=== PATIENT | male | born 1960 | race Two or more races ===

== ENCOUNTER 2024-09-09 09:00 | Inpatient (IN) | payer MEDICAID ==
[~2024-09-09] VITALS: Ht 182.9 cm; Wt 94.0 kg
[2024-09-09] MEDS: KETOROLAC TROMETH 60MG/2ML VIAL IM ONE (09:35)
--- NOTE | 2024-09-09 10:16 | ED.PDOC ---
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 Patient reports that he has been experiencing left sided flank pain with associated nausea, vomiting, and abdominal pain for the past 6 days. Patient relays that he was recently treated for a UTI about a month ago. Patient states he has recently stopped his BP and PTSD medication a week ago. Patient denies any diarrhea, fever, chills, dysuria, or hematuria. Chief Complaint: Back Pain Time Seen by MD: 10:13 Reviewed notes: Nurses Notes, Medications, Allergies Allergies: Coded Allergies: Gabapentin (Verified Allergy, Unknown, 09/09/24) Information Source: Patient Mode of Arrival: Ambulatory Severity: Moderate Timing: Days Duration: Since onset Prehospital treatment: None Onset: Spontaneous Symptoms: None History of: UTI Location: Abdomen, (L)Flank Penile discharge: None Modifying factors: None associated signs and symptoms: Abdominal Pain, Nausea, Vomiting, Flank Pain Past Medical History PAST MEDICAL HISTORY: HTN Past Medical History (Other): PTSD Surgical History: Denies all surgeries Family History Family History: Reviewed,noncontributory to illness Social History Smoker: Non-Smoker Alcohol: Denies ETOH Use Drugs: Denies Drug Use Lives In: Home Constitutional: denies: chills, diaphoresis, fatigue, fever, malaise, sweats, weakness, others EENTM: denies: blurred vision, double vision, ear bleeding, ear discharge, ear drainage, ear pain, ear ringing, eye pain, eye redness, hearing loss, mouth pain, mouth swelling, nasal discharge, nose bleeding, nose congestion, nose pain, photophobia, tearing, throat pain, throat swelling, voice changes, others Respiratory: denies: cough, hemoptysis, orthopnea, SOB at rest, shortness of breath, SOB with excertion, stridor, wheezing, others Cardiovascular: denies: chest pain, dizzy spells, diaphoresis, Dyspnea on exertion, edema, irregular heart beat, left arm pain, lightheadedness, palpitations, PND, syncope, others Gastrointestinal: reports: abdominal pain, nausea, vomiting; denies: abdomen distended, blood streaked bowels, constipated, diarrhea, dysphagia, difficulty swallowing, hematemesis, melena, poor appetite, poor fluid intake, rectal bleeding, rectal pain, others Genitourinary: reports: flank pain; denies: burning, dysuria, frequency, hematuria, incontinence, penile discharge, penile sore, pain, testicle pain, testicle swelling, urgency, others Neurological: denies: dizziness, fainting, headache, left sided numbness, left sided weakness, numbness, paresthesia, pre-existing deficit, right sided numbness, right sided weakness, seizure, speech problems, tingling, tremors, weakness, others Musculoskeletal: denies: back pain, gout, joint pain, joint swelling, muscle pain, muscle stiffness, neck pain, others Integumetry: denies: bruises, change in color, change in hair/nails, dryness, laceration, lesions, lumps, rash, wounds, others Allergic/Immunocompromised: denies: Difficulty Healing, Frequent Infections, Hives, Itching, others Hematologic/Lymphatic: denies: anemia, blood clots, easy bleeding, easy bruising, swollen glands, others Endocrine: denies: excessive hunger, excessive sweating, excessive thirst, excessive urination, flushing, intolerance to cold, intolerance to heat, unexplained weight gain, unexplained weight loss, others Psychiatric: denies: anxiety, bipolar disorder, depression, hopeless, panic disorder, schizophrenia, sleepless, suicidal, others All Other Systems: Reviewed and Negative Physical Exam General Appearance: Moderate Distress, Normal HEENT: Normal ENT Inspection, PERRL/EOMI Neck: Full Range of Motion, Non-Tender, Normal, Normal Inspection Respiratory: Chest Non-Tender, Lungs Clear, No Accessory Muscle Use, No Respiratory Distress, Normal Breath Sounds Cardiovascular: No Edema, No JVD, No Murmur, No Gallop, Normal Peripheral Pulses, Regular Rate/Rhythm Breast Exam: Deferred Gastrointestinal: Diffuse, No Organomegaly, No Pulsatile Mass, Normal Bowel Sounds, Soft Genitalia: Deferred Pelvic: Deferred Rectal: Deferred Extremities: No calf tenderness, Normal capillary refill, Normal inspection, Normal range of motion, Non-tender, No pedal edema Musculoskeletal : Apperance: Normal Neurologic: Alert, photographic aide II-XII nml as Tested, No Motor Deficits, Normal Affect, Normal Mood, No Sensory Deficits Cerebellar Function: Normal Reflexes: Normal Skin: Dry, Normal Color, Warm Peripheral Pulses: 3+ Radial (R), 3+ Radial (L) Lymphatic: No Adenopathy Was a procedure done? Was a procedure done?: No Differential Diagnosis Kidney stone (Female): Musculoskeletal pain, Urinary obstruction, Urolithiasis X-Ray, Labs, Meds, VS Vital Signs Date Time Temp Pulse Resp B/P (MAP) Pulse Ox O2 Delivery O2 Flow Rate FiO2 09/09/24 13:30 68 10 153/114 (127) 99 09/09/24 13:30 68 10 99 Room Air* 0 21 09/09/24 10:19 63 19 99 Room Air 09/09/24 10:19 97.7 63 19 161/96 (117) 99 97.7 09/09/24 09:00 98.6 62 16 186/98 (127) 62 Lab Test 09/09/24 10:25 09/09/24 10:24 Range/Units White Blood Count 10.4 4.4-10.8 10^3/uL Red Blood Count 4.80 4.5-5.90 10^6/uL Hemoglobin 14.9 13.5-17.5 g/dL Hematocrit 43.8 41.0-53.0 % Mean Corpuscular Volume 91.4 80.0-100.0 fL Mean Corpuscular Hemoglobin 31.0 28.0-32.0 pg Mean Corpuscular Hemoglobin Concent 34.0 32.0-36.0 g/dL Red Cell Distribution Width 14.0 11.8-14.3 % Platelet Count 423 140-450 10^3/uL Mean Platelet Volume 8.1 6.9-10.8 fL Neutrophils (%) (Auto) 80.1 H 37.0-80.0 % Lymphocytes (%) (Auto) 14.0 10.0-50.0 % Monocytes (%) (Auto) 4.6 0.0-12.0 % Eosinophils (%) (Auto) 0.5 0.0-7.0 % Basophils (%) (Auto) 0.8 0.0-2.0 % Neutrophils # (Auto) 8.3 1.6-8.6 10 ^3/uL Lymphocytes # (Auto) 1.4 0.4-5.4 10 ^3/uL Monocytes # (Auto) 0.5 0-1.3 10 ^3/uL Eosinophils # (Auto) 0 0-0.8 10 ^3/uL Basophils # (Auto) 0.1 0-0.2 10 ^3/uL Nucleated Red Blood Cells 0.1 % Sodium Level 137 136-145 mmol/L Potassium Level 3.8 3.5-5.1 mmol/L Chloride Level 105 98-107 mmol/L Carbon Dioxide Level 22 20-31 mmol/L Anion Gap 10 5-15 Blood Urea Nitrogen 11 9-23 mg/dL Creatinine 0.76 0.700-1.30 mg/dL Glomerular Filtration Rate Calc 100 >90 mL/min BUN/Creatinine Ratio 14.5 10.0-20.0 Serum Glucose 126 H 74-106 mg/dL Calcium Level 10.2 8.7-10.4 mg/dL Lipase 31 12-53 U/L Urine Color Yellow Yellow Urine Clarity Clear Clear Urine pH 7.5 5.0-9.0 Urine Specific [place] 1.026 1.001-1.035 Urine Protein Negative Negative Urine Ketones 1+ H Negative Urine Blood Negative Negative /uL Urine Nitrite Negative Negative Urine Bilirubin Negative Negative Urine Urobilinogen 2 H Negative mg/dL Urine Leukocyte Esterase Negative Negative /uL Urine RBC <1 0 - 3 /hpf Urine WBC 5 0 - 3 /hpf Urine Squamous Epithelial Cells None seen <5 /hpf Urine Bacteria None seen None Seen /hpf Urine Hyaline Casts Few 0 - 2 /lpf Urine Glucose Normal Normal mg/dL Current Medications Medications (Trade) Dose Ordered Sig/Milena Route Start Time Stop Time Status Last Admin Ketorolac Tromethamine (Toradol Injection) 60 mg ONCE ONCE IM 09/09/24 09:45 09/09/24 09:46 DC 09/09/24 09:35 Sodium Chloride 1,000 ml @ 1,000 mls/hr Q1H ONCE IV 09/09/24 10:15 09/09/24 11:14 DC 09/09/24 10:17 Pantoprazole Sodium 50 ml @ 10 mls/hr Q5H ONCE IV 09/09/24 11:45 09/09/24 16:44 09/09/24 13:35 Octreotide Acetate 500 mcg/ Sodium Chloride 100 ml @ 10 mls/hr Q10H IV 09/09/24 11:45 09/09/24 13:48 Patient alert. Complaining of abdominal pain radiating to the back. Vitals stable. Answering all questions. Started to vomit bright red blood. Establish intravenous access. Was given fluids. Was given Protonix. Was given octreotide. WBC within normal limits. Hemoglobin within normal limits. Stopped taking his medication. Blood pressure elevated. Was given hydralazine. Explained to the patient. Continue cardiac monitoring. CT scan of the abdomen reviewed does not show any acute process. Time of 1ST Reevaluation: 11:13 Reevaluation 1ST: Unchanged Patient Education/Counseling: Diagnosis, Treatment Family Education/Counseling: No Family Present Departure 1 Departure Time of Disposition: 14:18 Impression: Primary Impression: GI bleed Qualified Codes: K92.2 - Gastrointestinal hemorrhage, unspecified Additional Impression: Gallstones Disposition: ADMITTED INPATIENT Admit to: Med Surg Condition: Guarded Critical Care Note Critical Care Time?: Yes (45 min-critical care time only) Stability Stability form required: No Heart Score Heart Score: Heart Score Response (Comments) Value History N/A 0 EKG N/A 0 Age N/A 0 Risk Factors N/A 0 Troponin N/A 0 Total 0 I personally scribed for DEBBIE MCPHERSON MD ([email or web address]) on 09/09/24 at 10:16. Electronically submitted by Serafin Martinez ([email or web address]). DEBBIE MCPHERSON MD Sep 09, 2024 10:16
[2024-09-09] MEDS: SODIUM CHLORIDE 0.9% 1,000 ML IV ONE (10:17)
[2024-09-09 10:55] LABS: Chloride 105 mmol/L (98-107); Potassium 3.8 mmol/L (3.5-5.1); Sodium 137 mmol/L (136-145)
[2024-09-09 10:56] LABS: Anion Gap 10 (5-15); Basophils # (auto) 0.1 10 ^3/uL (0-0.2); Basophils % (auto) 0.8 % (0.0-2.0); Calcium 10.2 mg/dL (8.7-10.4); Carbon Dioxide 22 mmol/L (20-31); Eosinophils # (auto) 0 10 ^3/uL (0-0.8); Eosinophils % (auto) 0.5 % (0.0-7.0); Hematocrit 43.8 % (41.0-53.0); Hemoglobin 14.9 g/dL (13.5-17.5); Lymphocytes # (auto) 1.4 10 ^3/uL (0.4-5.4); Mean Corpuscular Volume 91.4 fL (80.0-100.0); Monocytes # (auto) 0.5 10 ^3/uL (0-1.3); Monocytes % (auto) 4.6 % (0.0-12.0); Neutrophils # (auto) 8.3 10 ^3/uL (1.6-8.6); Neutrophils % (auto) 80.1 % (37.0-80.0); Nucleated Red Blood Cells % 0.1 %; Platelet Count (auto) 423 10^3/uL (140-450); White Blood Cell 10.4 10^3/uL (4.4-10.8)
[2024-09-09 11:01] LABS: BUN/Creatinine Ratio 14.5 (10.0-20.0); Blood Urea Nitrogen 11 mg/dL (9-23)
[2024-09-09 11:03] LABS: Urine Bacteria None Seen /hpf (None Seen)
[2024-09-09 11:05] LABS: Glucose 126 mg/dL (74-106)
[2024-09-09 11:23] LABS: Urine Blood Negative /uL (Negative); Urine Clarity Clear (Clear); Urine Color Yellow (Yellow); Urine Hyaline Cast FEW /lpf (0 - 2); Urine Protein, UAD Negative (Negative); Urine Specific Gravity 1.026 (1.001-1.035); Urine Urobilinogen 2 mg/dL (Negative); Urine WBC 5 /hpf (0 - 3); Urine pH 7.5 (5.0-9.0)
[2024-09-09 11:43] LABS: Lipase 31 U/L (12-53)
--- NOTE | 2024-09-09 12:53 | DVH ---
Procedure: CT CT AB PEL WITH IV CON ONLY 09/09/2024 12:03 PM Indication: gibleed Comparison Study: None available at time of dictation. Technique: Axial images were obtained and reformatted in coronal and sagittal planes. All CT scans at this medical facility are performed using dose modulation techniques as appropriate t o a performed exam including the following: Automated exposure control was utilized; adjustment of th e MA and/or KV according to patient size; and use of iterative reconstruction technique. CT Dose: CTDI volume is 7.55 mGy. Dose-length product is 345.38 mGy*cm FINDINGS: Lower Chest: Mild centrilobular and paraseptal emphysematous changes noted. A 5 mm juxtapleural nodul e seen in the lateral segment of right middle lobe. Mild left basilar subsegmental atelectasis noted . Hepatobiliary: Cholelithiasis with no evidence for cholecystitis. Spleen: Unremarkable. Pancreas: Unremarkable. Adrenal Glands: Unremarkable. tract: The kidneys are normal in size bilaterally without hydronephrosis or nephrolithiasis. The urinary bladder is unremarkable. GI tract: A small sliding hiatal hernia noted. No evidence of small bowel obstruction. Scattered col onic diverticula are noted without evidence of diverticulitis. The appendix is normal. Lymphatics: No mesenteric, retroperitoneal or periportal lymphadenopathy. Vasculature: The abdominal aorta is normal in caliber. Diffuse calcified plaque formation is noted. Pelvic Organs: Prostate is mildly enlarged. Bones/soft tissues: No acute osseous abnormality. Postoperative changes of right acetabulum and left proximal hip are noted chronic appearing moderate compression deformities of L2 and L4 with up to 50 % loss of height centrally. Multilevel degenerative disc disease and posterior facet arthropathy of the lumbar spine noted. Other: None. IMPRESSION: 1. No CT evidence for acute intra-abdominal or intrapelvic process. 2. Scattered colonic diverticula without diverticulitis. 3. Mild fecal retention. 4. Small sliding hiatal hernia. 5. Cholelithiasis without evidence of cholecystitis.
[2024-09-09 13:30] VITALS: PULSE 68; RESP 10; O2SAT 99
[2024-09-09] MEDS: PANTOPRAZOLE 40mg/50ML NS AE 50 ML IV ONE (13:35)
[2024-09-09] MEDS: IOHEXOL 300 MG/ML 100ML BOTTLE IJ ONE (13:43)
[2024-09-09] MEDS: OCTREOTIDE ACETATE 500 MCG in SODIUM CHL 0.9% 99 ML IV SCH (13:48)
[2024-09-09] MEDS ORDERED: AMLO1TAB23 PO (14:27)
[2024-09-09] MEDS ORDERED: ROSU10TA64 PO (14:27)
[2024-09-09] MEDS ORDERED: ENAL1TAB48 PO (14:27)
[2024-09-09] MEDS ORDERED: FLUO-470 PO (14:27)
[2024-09-09] MEDS ORDERED: BUPR150T18 PO (14:27)
[2024-09-09] MEDS ORDERED: FLUO40CA PO (14:27)
[2024-09-09] MEDS ORDERED: OXCA600T3 PO (14:27)
[2024-09-09] MEDS ORDERED: ONDANSETRON HCL 4 MG/2 ML VIAL IV PRN (14:30)
[2024-09-09] MEDS ORDERED: NITROGLYCERIN 0.4 MG SL TAB SL PRN (14:30)
[2024-09-09] MEDS ORDERED: MORPHINE SULFATE INJ 2 MG/ml SYRG IV PRN (14:30)
[2024-09-09] MEDS ORDERED: DOCUSATE SOD 100 MG CAP PO PRN (14:30)
--- NOTE | 2024-09-09 14:34 | DVHHP2 ---
History of Present Illness Reason for Visit: Back Pain History of Present Illness Vladimir Martinez is a 64-year-old male with past medical history of hypertension, hyperlipidemia, chronic pain, and PTSD, who came into the hospital for back/flank pain. Patient states that he began having back pain about 5 days ago. He stopped taking all his home medications thinking they were harming his kidneys. While in the ER he became nauseated and vomiting bile, then began to vomit dark red blood. Cardiovascular: HTN, hyperipidemia Psych: Other (PTSD) Musculoskeletal: Chronic low back pain Past Surgical History: Other (righ femur, right pelvis, right ankle, left forarm), Tonsillectomy Smoke: No ALCOHOL: none Drugs: Marijuana Lives: with Family Domestic Violence: Neg Review of Systems Constitutional: Yes: Malaise; No: Fever, Chills, Sweats, Weakness, Other Eyes: No: Pain, Vision change, Conjunctivae inflammation, Eyelid inflammation, Other, Redness ENT: No: Ear pain, Ear discharge, Nose pain, Nose discharge, Nose congestion, Mouth pain, Mouth swelling, Throat pain, Throat swelling, Other Respiratory: No: Cough, Dry, Shortness of breath, SOB with excertion, Wheezing, Hemoptysis, Pleuritic Pain, Sputum, Wheezing, Other Cardiovascular: No: Chest Pain, Palpitations, Orthopnea, Paroxysmal Noc. Dyspnea, Edema, Lt Headedness, Other Gastrointestinal: Nausea, Vomiting; No: Abdominal Pain, Diarrhea, Constipation, Melena, Hematochezia, Other Genitourinary: No Dysuria, No Frequency, No Incontinence, No Hematuria, No Retention, No Other Musculoskeletal: back pain; No: other, neck pain, shoulder pain, arm pain, hand pain, leg pain, foot pain Skin: No: Rash, Lesions, Jaundice, Bruising, Other Neurological: No: Weakness, Numbness, Incoordination, Change in speech, Confusion, Seizures, Other Allergies: Coded Allergies: Gabapentin (Verified Allergy, Unknown, 09/09/24) Medications Current Medications Medications Dose Ordered Sig/Milena Route Start Time Stop Time Status Last Admin Dose Admin Octreotide Acetate 500 mcg/ Sodium Chloride 100 ml @ 10 mls/hr Q10H IV 09/09/24 11:45 09/09/24 13:48 10 MLS/HR Sodium Chloride 1,000 ml @ 100 mls/hr Q10H IV 09/09/24 14:30 UNV Acetaminophen/ Hydrocodone Bitart 1 tab Q4HP PRN PO 09/09/24 14:30 UNV Ondansetron HCl 4 mg Q4HP PRN IV 09/09/24 14:30 UNV Docusate Sodium 100 mg BIDPRN PRN PO 09/09/24 14:30 UNV Acetaminophen 650 mg Q6HP PRN PO 09/09/24 14:30 UNV Morphine Sulfate 2 mg Q4HPRN PRN IV 09/09/24 14:30 UNV Nitroglycerin 0.4 mg Q5MINP PRN SL 09/09/24 14:30 UNV Morphine Sulfate 2 mg Q30M PRN IV 09/09/24 14:30 UNV Exam Vital Signs Vital Signs Date Time Temp Pulse Resp B/P (MAP) Pulse Ox O2 Delivery O2 Flow Rate FiO2 09/09/24 13:30 68 10 153/114 (127) 99 09/09/24 13:30 Room Air* 0 21 09/09/24 10:19 97.7 97.7 General Appearance: Alert, Oriented X3, Cooperative, moderate distress HEENT: Atraumatic, PERRLA Respiratory: Clear to auscultation, Normal air movement Cardiovascular: Regular rate, Normal S1, Normal S2 Abdominal: Normal bowel sounds, Soft, Other (N/V) Extremities: No clubbing, No cyanosis, No edema, Normal pulses Skin: No rashes, No breakdown, No significant lesion Neuro: Normal gait, Normal speech Psych/Mental Status: Mental status NL, Mood NL Labs/Xrays Labs Test 09/09/24 10:25 09/09/24 10:24 Range/Units White Blood Count 10.4 4.4-10.8 10^3/uL Red Blood Count 4.80 4.5-5.90 10^6/uL Hemoglobin 14.9 13.5-17.5 g/dL Hematocrit 43.8 41.0-53.0 % Mean Corpuscular Volume 91.4 80.0-100.0 fL Mean Corpuscular Hemoglobin 31.0 28.0-32.0 pg Mean Corpuscular Hemoglobin Concent 34.0 32.0-36.0 g/dL Red Cell Distribution Width 14.0 11.8-14.3 % Platelet Count 423 140-450 10^3/uL Mean Platelet Volume 8.1 6.9-10.8 fL Neutrophils (%) (Auto) 80.1 H 37.0-80.0 % Lymphocytes (%) (Auto) 14.0 10.0-50.0 % Monocytes (%) (Auto) 4.6 0.0-12.0 % Eosinophils (%) (Auto) 0.5 0.0-7.0 % Basophils (%) (Auto) 0.8 0.0-2.0 % Neutrophils # (Auto) 8.3 1.6-8.6 10 ^3/uL Lymphocytes # (Auto) 1.4 0.4-5.4 10 ^3/uL Monocytes # (Auto) 0.5 0-1.3 10 ^3/uL Eosinophils # (Auto) 0 0-0.8 10 ^3/uL Basophils # (Auto) 0.1 0-0.2 10 ^3/uL Nucleated Red Blood Cells 0.1 % Sodium Level 137 136-145 mmol/L Potassium Level 3.8 3.5-5.1 mmol/L Chloride Level 105 98-107 mmol/L Carbon Dioxide Level 22 20-31 mmol/L Anion Gap 10 5-15 Blood Urea Nitrogen 11 9-23 mg/dL Creatinine 0.76 0.700-1.30 mg/dL Glomerular Filtration Rate Calc 100 >90 mL/min BUN/Creatinine Ratio 14.5 10.0-20.0 Serum Glucose 126 H 74-106 mg/dL Calcium Level 10.2 8.7-10.4 mg/dL Lipase 31 12-53 U/L Urine Color Yellow Yellow Urine Clarity Clear Clear Urine pH 7.5 5.0-9.0 Urine Specific [place] 1.026 1.001-1.035 Urine Protein Negative Negative Urine Ketones 1+ H Negative Urine Blood Negative Negative /uL Urine Nitrite Negative Negative Urine Bilirubin Negative Negative Urine Urobilinogen 2 H Negative mg/dL Urine Leukocyte Esterase Negative Negative /uL Urine RBC <1 0 - 3 /hpf Urine WBC 5 0 - 3 /hpf Urine Squamous Epithelial Cells None seen <5 /hpf Urine Bacteria None seen None Seen /hpf Urine Hyaline Casts Few 0 - 2 /lpf Urine Glucose Normal Normal mg/dL Procedure: CT CT AB PEL WITH IV CON ONLY 09/09/2024 12:03 PM FINDINGS: Lower Chest: Mild centrilobular and paraseptal emphysematous changes noted. A 5 mm juxtapleural nodule seen in the lateral segment of right middle lobe. Mild left basilar subsegmental atelectasis noted. Hepatobiliary: Cholelithiasis with no evidence for cholecystitis. Spleen: Unremarkable. Pancreas: Unremarkable. Adrenal Glands: Unremarkable. tract: The kidneys are normal in size bilaterally without hydronephrosis or nephrolithiasis. The urinary bladder is unremarkable. GI tract: A small sliding hiatal hernia noted. No evidence of small bowel obstruction. Scattered colonic diverticula are noted without evidence of diverticulitis. The appendix is normal. Lymphatics: No mesenteric, retroperitoneal or periportal lymphadenopathy. Vasculature: The abdominal aorta is normal in caliber. Diffuse calcified plaque formation is noted. Pelvic Organs: Prostate is mildly enlarged. Bones/soft tissues: No acute osseous abnormality. Postoperative changes of right acetabulum and left proximal hip are noted chronic appearing moderate compression deformities of L2 and L4 with up to 50% loss of height centrally. Multilevel degenerative disc disease and posterior facet arthropathy of the lumbar spine noted. Other: None. IMPRESSION: 1. No CT evidence for acute intra-abdominal or intrapelvic process. 2. Scattered colonic diverticula without diverticulitis. 3. Mild fecal retention. 4. Small sliding hiatal hernia. 5. Cholelithiasis without evidence of cholecystitis. Assessment/Plan Assessment/Plan Assessment: GI bleed, Cholelithiasis, Hypertension, Hyperlipidemia, PTSD, Chronic pain, Plan: Admit to Med-Surg, GI consult, Sandostatin drip, Protonix drip, NPO except medications, Stool for occult blood, Manage/Monitor H&H closely, Home medications reconciled, Plan discussed with: Patient My Orders Orders - JAYLYN LARKIN Procedure Category Date Status Time Admit ADMIT 09/09/24 Transmitted 14:20 Code Status CODE 09/09/24 Transmitted 14:20 Sodium Chloride 0.9% PHA 09/09/24 Logged 14:30 Hydrocodone-Acet PHA 09/09/24 Logged 5/325mg Tab ([place] 14:30 Ondansetron Hcl PHA 09/09/24 Logged (Zofran) 14:30 Docusate Sodium PHA 09/09/24 Logged Capsule (Colace 14:30 Complete Blood Count LAB 09/10/24 Verified 04:00 Comprehensive LAB 09/10/24 Verified Metabolic Panel 04:00 Npo (Nothing By DIET 09/09/24 Transmitted Mouth) Diet Dinner Condition: Serious LEONID 09/09/24 In Process 14:20 Acetaminophen Tablet PHA 09/09/24 Logged (Tylenol Tablet) 14:30 Morphine Sulfate PHA 09/09/24 Logged Injection 14:30 Nitroglycerin PHA 09/09/24 Transmitted Sublingual (Ntrostat 14:30 Morphine Sulfate PHA 09/09/24 Transmitted Injection 14:30 Stat Ekg For Chest LEONID 09/09/24 In Process Pain 14:20 Notify Md Of Changes [facility] 09/09/24 In Process From Base 14:20 Cook Vacuum Kettle For [facility] 09/09/24 In Process 24 Hours 14:20 Emergency Dysrhythmia [facility] 09/09/24 In Process Protocol 14:20 Rhythm Strips Once [facility] 09/09/24 In Process Every Shift 14:20 Oxygen By Nasal RT 09/09/24 Transmitted Cannula 14:20 Hemoglobin & LAB 09/09/24 Logged Hematocrit 16:00 * [facility] Clinical Staff Educator CONS 09/09/24 Transmitted 14:27 Stool Occult Blood LAB 09/09/24 Transmitted 14:28 Date of Service: Sep 09, 2024 Billing Provider: JAYLYN LARKIN Common Visit Codes: [id number] INP/OBS CARE (MOD) JAYLYN LARKIN Sep 09, 2024 14:34
[2024-09-09] MEDS: SODIUM CHLORIDE 0.9% 1,000 ML IV SCH (14:51)
[2024-09-09 16:14] LABS: Hematocrit 43.8 % (41.0-53.0); Hemoglobin 14.8 g/dL (13.5-17.5)
[2024-09-09] MEDS ORDERED: MORP1TAB12 PO (17:39)
[2024-09-09 18:57] VITALS: BP 150/90; PULSE 68; RESP 20; TEMP 98; O2SAT 96
[2024-09-09 19:03] VITALS: BP 142/93; PULSE 68; RESP 18; TEMP 98.1; O2SAT 97
[2024-09-09 20:00] VITALS: O2SAT 98
[2024-09-09] MEDS: MORPHINE SULF 15mg ER tab PO SCH (21:44)
[2024-09-09] MEDS: ATORVASTATIN 20 MG TAB PO SCH (21:44)
[2024-09-09] MEDS: OXcarbazepine 300 MG TAB PO SCH (21:44)
[2024-09-10] VITALS (7 sets, daily range): BP systolic 121–145; BP diastolic 74–90; PULSE 53–60; RESP 16–20; TEMP 97.4–98.1; O2SAT 93–100
[2024-09-10] MEDS: HYDROcodone-ACET 5/325MG TAB PO PRN (03:03)
[2024-09-10 07:41] LABS: Basophils # (auto) 0.1 10 ^3/uL (0-0.2); Basophils % (auto) 0.7 % (0.0-2.0); Eosinophils # (auto) 0.1 10 ^3/uL (0-0.8); Eosinophils % (auto) 1.4 % (0.0-7.0); Hematocrit 39.5 % (41.0-53.0); Hemoglobin 13.5 g/dL (13.5-17.5); Lymphocytes # (auto) 2.3 10 ^3/uL (0.4-5.4); Lymphocytes % (auto) 29.1 % (10.0-50.0); Mean Corpuscular Hemoglobin 31.5 pg (28.0-32.0); Mean Corpuscular Hgb Conc. 34.2 g/dL (32.0-36.0); Mean Corpuscular Volume 92.2 fL (80.0-100.0); Monocytes # (auto) 0.6 10 ^3/uL (0-1.3); Monocytes % (auto) 8.2 % (0.0-12.0); Neutrophils # (auto) 4.7 10 ^3/uL (1.6-8.6); Neutrophils % (auto) 60.6 % (37.0-80.0); Nucleated Red Blood Cells % 0.1 %; Platelet Count (auto) 340 10^3/uL (140-450); Red Blood Cells 4.28 10^6/uL (4.5-5.90); Red Cell Distribution Width 14.2 % (11.8-14.3); White Blood Cell 7.8 10^3/uL (4.4-10.8)
[2024-09-10 07:56] LABS: Alanine Aminotransferase 22 U/L (7-40); Alkaline Phosphatase 104 U/L (46-116); Anion Gap 7 (5-15); BUN/Creatinine Ratio 14.3 (10.0-20.0); Blood Urea Nitrogen 10 mg/dL (9-23); Calcium 9.3 mg/dL (8.7-10.4); Carbon Dioxide 26 mmol/L (20-31); Chloride 105 mmol/L (98-107); Potassium 4.2 mmol/L (3.5-5.1); Sodium 138 mmol/L (136-145)
[2024-09-10 07:57] LABS: Aspartate Aminotransferase 19 U/L (13-40); Bilirubin, Total 0.6 mg/dL (0.2-1.0); Glucose 131 mg/dL (74-106); Total Protein 6.3 g/dL (5.7-8.2)
[2024-09-10] MEDS ORDERED: FLUoxetine HCL 20 MG CAP PO SCH (10:00)
[2024-09-10] MEDS: ENALAPRIL MALEATE 10 MG TAB PO SCH (10:16)
[2024-09-10] MEDS: PANTOPRAZOLE 40 MG/10 ML VIAL INJ IV SCH (10:16)
[2024-09-10] MEDS: amLODIPine BESYLATE 5 MG TAB PO SCH (10:16)
[2024-09-10] MEDS: FLUoxetine HCL 20 MG CAP PO SCH (10:22)
--- NOTE | 2024-09-10 14:12 | DVHPNRES ---
Progress Note Date Seen: Sep 10, 2024 Resident Creating Document: CAMILO SALASJOSE MIGUELELLA RESIDENT Medical Necessity Reason Pt with a Central, PICC or Fol: No Subjective Review of Systems Patient is a 64-year-old male with a past medical history as described below came to the ED with a chief complaint of multiple episodes of vomiting. Patient reported that about a week ago he started having back pain , in the lower back, no radiation to the lungs, no flank pain, no pain on urination. One day prior to admission patient reported nausea with driving and 6 episodes of vomiting throwing up whitish yellow liquid, no blood in vomitus at home. Patient came to the hospital for further evaluation. In the ER patient reported throwing up 2 times with dark-colored blood. Patient denied history of cirrhosis, denied NSAID use, reported alcohol occasional use, denies smoking cigarettes but smokes 2 joints a day. Patient denied history of dark stools or hematochezia. CT abdomen pelvis with IV contrast was done which showed no acute intra- abdominal or intrapelvic process, scattered colonic diverticula without diverticulitis, small sliding hernia. Past medical History: Hypertension, hyperlipidemia, chronic back pain, PTSD Past surgical history: Right pelvis surgery, left femur surgery, left arm surgery Social history: Occasional alcohol, denies cigarette smoking, smokes 2 joints of weed a day. Denies any other drug use. Home Medication: Amlodipine 10 mg, enalapril 20 mg, bupropion 150 mg, fluoxetine 60 mg, rosuvastatin 10mg' Review of systems Patient seen and examined at the bedside. Alert and oriented x 4. Vitals stable. Reports chronic lower back pain. Denied nausea, vomiting, abdominal pain, diarrhea, melena, hematochezia. Patient was NPO Denied Chest, shortness of breath, palpitations. Objective vital signs Vital Sign Date Time Temp Pulse Resp B/P (MAP) Pulse Ox O2 Delivery O2 Flow Rate FiO2 09/10/24 10:16 135/90 09/10/24 09:00 98.1 54 19 95 98.1 09/10/24 07:50 Room Air* 0 21 Total Intake and Output 09/09/24 09/09/24 09/10/24 15:00 23:00 07:00 Intake Total 100 ml 1300 ml Output Total 600 ml Balance 100 ml 700 ml medications Current Medications Medications Dose Ordered Sig/Milena Route Start Time Stop Time Status Last Admin Dose Admin Sodium Chloride 1,000 ml @ 100 mls/hr Q10H IV 09/09/24 14:30 09/10/24 02:57 100 MLS/HR Acetaminophen/ Hydrocodone Bitart 1 tab Q4HP PRN PO 09/09/24 14:30 09/10/24 03:03 1 TAB Ondansetron HCl 4 mg Q4HP PRN IV 09/09/24 14:30 Docusate Sodium 100 mg BIDPRN PRN PO 09/09/24 14:30 Acetaminophen 650 mg Q6HP PRN PO 09/09/24 14:30 Morphine Sulfate 2 mg Q4HPRN PRN IV 09/09/24 14:30 Nitroglycerin 0.4 mg Q5MINP PRN SL 09/09/24 14:30 Morphine Sulfate 2 mg Q30M PRN IV 09/09/24 14:30 Fluoxetine HCl 60 mg DAILY PO 09/10/24 10:00 09/10/24 10:22 60 MG Amlodipine Besylate 10 mg DAILY PO 09/10/24 10:00 09/10/24 10:16 10 MG Patient Own Medication 1 tab DAILY PO 09/10/24 10:00 Enalapril Maleate 20 mg DAILY PO 09/10/24 10:00 09/10/24 10:16 20 MG Fluoxetine HCl 40 mg DAILY PO 09/10/24 10:00 Cancel Oxcarbazepine 600 mg HS PO 09/09/24 22:00 09/09/24 21:44 600 MG Atorvastatin Calcium 20 mg HS PO 09/09/24 22:00 09/09/24 21:44 20 MG Morphine Sulfate 15 mg BID PO 09/09/24 22:00 09/10/24 10:15 15 MG Pantoprazole Sodium 40 mg BID IV 09/10/24 10:00 09/10/24 10:16 40 MG Examination Physical Examination Gen - no pallor, no icterus, no cyanosis, no clubbing, no LAD, no edema . Skin - Patients skin is warm and dry.. HEENT - normocephalic, atraumatic, moist mucous membranes. Neck - full ROM, no LAD, JVP waveform is not seen. Pulmonary - B/L vesicular breath sounds. no crackles , no wheezing, no stridor. cardiovascular - normal S1,S2 heard. no murmurs heard. peripheral pulses normal radial 2+, pedal 2+. capillary refill normal <2 secs. GI - soft abdomen with tenderness to palpation in the right and the left iliac regions. no tenderness to deep palpation . no hepatospleenomegaly. Neurological - Patient is A/O X 3 . Bilateral upper extremity strength 5/5, bilateral lower extremity strength 5/5, no facial droop, normal speech, no tremor, no sensory deficiets. laboratory and microbiology Laboratory Tests 09/10/24 07:08 Test 09/10/24 07:08 Range/Units Serum Glucose 131 H 74-106 mg/dL Problem List/Assessment/Plan Problem List/Assessment/Plan assessment and plan # Acute intractable nausea and vomiting # Acute GI bleed ?Kassidy wiess ?peptic ulcer - CT abd pelvis with IV contrast showed No CT evidence of acute intraabdominal or intrapelvic process. - kept NPO - given octreotide drip in the ER - put on protonix 40mg IV bid - maintainence IV fluids - H&H stable - GI consult pending. - Stool occult blood pending - Transaminases pending - Hepatitis B and Hepatitis C antibody pending - Patient was started on clear liquid diet for Dinner # H/o Hypertension - patient continued on home meds , amlodipine 10 mg Qd and enalapril 20mg Qd # H/o Depression and PTSD - continued Fluoxetine 60mg Qd, Bupropion 150mg Qd # Chronic Back Pain - morphine 15mg bid po # Hyperlipidemia - atorvastatin 20mg Goals of care discussed with the patient for over 33 minutes. Full code Plan discussed with Dr. Graves Plan discussed with: Patient My Orders My Orders Orders - ROMA SALAS RESIDENT Procedure Category Date Status Time Drug Screen LAB 09/10/24 Logged 12:31 Date of Service: Sep 10, 2024 Billing Provider: BRYCE ARITA MD Common Visit Codes: [id number] INP/OBS CARE(HIGH) ROMA SALAS RESIDENT Sep 10, 2024 14:12 BRYCE ARITA MD Sep 12, 2024 23:10
[2024-09-10] MEDS: ACETAMINOPHEN 325 MG TAB PO PRN (15:01)
--- NOTE | 2024-09-10 18:17 | DVHINCON2 ---
Date of service: Sep 10, [address] Booker Reason for Consultation Nausea vomiting and some vomiting of some dark red blood History of Present Illness This 64-year-old with a history of hypertension hyperlipidemia chronic problems with back pain and flank pain and history of back history of urine tract infections came in with back pains while in the ER he also had two became nauseated throwing up bile and some vomiting of dark red blood and hence the reason for GI consult History of any ulcer disease or pancreas disease or liver disease CT scan showed no gross abnormalities except for some diverticulae Patient is much better no clinically no bleeding now Past Medical History Hypertension hyperlipemia, PTSD Past Surgical History Trauma surgery femur pelvis forearm tonsillectomy Family History: Alcoholism G8 FATHER, Family History Noncontributory Social History Denies smoking or drinking but smokes marijuana Allergies: Coded Allergies: Gabapentin (Verified Allergy, Unknown, 09/09/24) Home Meds Reported Medications Morphine Sulfate (Morphine Sulfate Cr) 15 Mg Tab, 1 TAB PO BID 09/09/24 Oxcarbazepine (Trileptal) 600 Mg Tab, 600 MG PO HS, TAB 09/09/24 Enalapril Maleate (Enalapril Maleate) 20 Mg Tab, 1 TAB PO DAILY 09/09/24 Rosuvastatin Calcium (Rosuvastatin Calcium) 10 Mg Tab, 1 TAB PO HS 09/09/24 Amlodipine Besylate (Amlodipine Besylate) 10 Mg Tab, 1 TAB PO DAILY 09/09/24 Bupropion Hcl (Bupropion Hcl Xl) 150 Mg Tab, 1 TAB PO DAILY 09/09/24 Fluoxetine Hcl (Fluoxetine Hcl) 40 Mg Cap, 1 CAP PO DAILY 09/09/24 Fluoxetine HCl (Fluoxetine HCl) 20 Mg Cap, 20 MG PO DAILY 09/09/24 Current Medications Current Medications Medications (Trade) Dose Ordered Sig/Milena Route PRN Reason Start Time Stop Time Status Last Admin Fluoxetine HCl (PROzac CAPSULE) 60 mg DAILY PO 09/10/24 10:00 09/10/24 10:22 Amlodipine Besylate (Norvasc Tablet) 10 mg DAILY PO 09/10/24 10:00 09/10/24 10:16 Patient Own Medication 1 tab DAILY PO 09/10/24 10:00 Enalapril Maleate (Vasotec Tablet) 20 mg DAILY PO 09/10/24 10:00 09/10/24 10:16 Fluoxetine HCl (PROzac CAPSULE) 40 mg DAILY PO 09/10/24 10:00 Cancel Oxcarbazepine (Trileptal Tablet) 600 mg HS PO 09/09/24 22:00 09/09/24 21:44 Atorvastatin Calcium (Lipitor) 20 mg HS PO 09/09/24 22:00 09/09/24 21:44 Morphine Sulfate (Oramorph Sustained Release Tab) 15 mg BID PO 09/09/24 22:00 09/10/24 10:15 Pantoprazole Sodium (Protonix) 40 mg BID IV 09/10/24 10:00 09/10/24 10:16 Review of Systems Noncontributory Vital Signs Vital Signs Date Time Temp Pulse Resp B/P (MAP) Pulse Ox O2 Delivery O2 Flow Rate FiO2 09/10/24 17:00 98.0 59 19 124/84 (97) 100 98.0 09/10/24 07:50 Room Air* 0 21 Physical Exam Moderately built and nourished male in no acute distress Vitals stable Lungs clear Cardiovascular unremarkable Abdomen soft mild tenderness in epigastrium no rigidity no guarding Bowel sounds normal Labs/Diagnostic Data Labs Test 09/10/24 07:08 09/09/24 10:25 09/09/24 10:24 Range/Units White Blood Count 7.8 4.4-10.8 10^3/uL Red Blood Count 4.28 L 4.5-5.90 10^6/uL Hemoglobin 13.5 13.5-17.5 g/dL Hematocrit 39.5 L 41.0-53.0 % Mean Corpuscular Volume 92.2 80.0-100.0 fL Mean Corpuscular Hemoglobin 31.5 28.0-32.0 pg Mean Corpuscular Hemoglobin Concent 34.2 32.0-36.0 g/dL Red Cell Distribution Width 14.2 11.8-14.3 % Platelet Count 340 140-450 10^3/uL Mean Platelet Volume 8.0 6.9-10.8 fL Neutrophils (%) (Auto) 60.6 37.0-80.0 % Lymphocytes (%) (Auto) 29.1 10.0-50.0 % Monocytes (%) (Auto) 8.2 0.0-12.0 % Eosinophils (%) (Auto) 1.4 0.0-7.0 % Basophils (%) (Auto) 0.7 0.0-2.0 % Neutrophils # (Auto) 4.7 1.6-8.6 10 ^3/uL Lymphocytes # (Auto) 2.3 0.4-5.4 10 ^3/uL Monocytes # (Auto) 0.6 0-1.3 10 ^3/uL Eosinophils # (Auto) 0.1 0-0.8 10 ^3/uL Basophils # (Auto) 0.1 0-0.2 10 ^3/uL Nucleated Red Blood Cells 0.1 % Sodium Level 138 136-145 mmol/L Potassium Level 4.2 3.5-5.1 mmol/L Chloride Level 105 98-107 mmol/L Carbon Dioxide Level 26 20-31 mmol/L Anion Gap 7 5-15 Blood Urea Nitrogen 10 9-23 mg/dL Creatinine 0.70 0.700-1.30 mg/dL Glomerular Filtration Rate Calc 103 >90 mL/min BUN/Creatinine Ratio 14.3 10.0-20.0 Serum Glucose 131 H 74-106 mg/dL Calcium Level 9.3 8.7-10.4 mg/dL Total Bilirubin 0.6 0.2-1.0 mg/dL Aspartate Amino Transferase (AST) 19 13-40 U/L Alanine Aminotransferase (ALT) 22 7-40 U/L Alkaline Phosphatase 104 46-116 U/L Total Protein 6.3 5.7-8.2 g/dL Albumin 4.0 3.2-4.8 g/dL Lipase 31 12-53 U/L Urine Color Yellow Yellow Urine Clarity Clear Clear Urine pH 7.5 5.0-9.0 Urine Specific [place] 1.026 1.001-1.035 Urine Protein Negative Negative Urine Ketones 1+ H Negative Urine Blood Negative Negative /uL Urine Nitrite Negative Negative Urine Bilirubin Negative Negative Urine Urobilinogen 2 H Negative mg/dL Urine Leukocyte Esterase Negative Negative /uL Urine RBC <1 0 - 3 /hpf Urine WBC 5 0 - 3 /hpf Urine Squamous Epithelial Cells None seen <5 /hpf Urine Bacteria None seen None Seen /hpf Urine Hyaline Casts Few 0 - 2 /lpf Urine Glucose Normal Normal mg/dL Assessment 64-year-old with a history of hypertension hyperlipidemia with chronic back pains had some nausea vomiting and some one episode of dark colored blood patient has got history of PTC AST about vagina in intake physical examination is unremarkable at this time No more GI bleeding no nausea or vomiting at this time he is clinically much better does not want any GI intervention and no other treatment at this time wants to go home Plan/Recommendation We will recommend to slowly advance diet and see If further severe hematemesis or other problems may need further GI workup otherwise we will set recommend symptomatic treatment for now Thank you Dr. Monteiro Plan discussed with: Patient HANANE MONTEIRO MD Sep 10, 2024 18:17
[2024-09-11 05:00] VITALS: BP 105/70; PULSE 56; RESP 20; TEMP 98.6; O2SAT 97
[2024-09-11] MEDS: MORPHINE SULFATE INJ 2 MG/ml SYRG IV PRN (06:31)
[2024-09-11 07:41] LABS: Amphetamine Screen, Urine Neg (NEGATIVE)
[2024-09-11 07:42] LABS: Barbiturate Scree,Urine Neg (NEGATIVE); Benzodiazephine Screen, Urine Neg (NEGATIVE); Cannabinoid Screen, Urine Pos (NEGATIVE); Cocaine Screen, Urine Neg (NEGATIVE); Opiate Scree,Urine Pos (NEGATIVE); Phencyclidine Screen, Urine Neg (NEGATIVE)
[2024-09-11 08:00] VITALS: RESP 20; O2SAT 96
[2024-09-11 08:39] LABS: Basophils # (auto) 0.1 10 ^3/uL (0-0.2); Basophils % (auto) 0.9 % (0.0-2.0); Eosinophils # (auto) 0.2 10 ^3/uL (0-0.8); Hematocrit 42.7 % (41.0-53.0); Hemoglobin 15.1 g/dL (13.5-17.5); Lymphocytes # (auto) 1.9 10 ^3/uL (0.4-5.4); Lymphocytes % (auto) 25.7 % (10.0-50.0); Mean Corpuscular Hemoglobin 32.3 pg (28.0-32.0); Mean Corpuscular Hgb Conc. 35.4 g/dL (32.0-36.0); Mean Corpuscular Volume 91.3 fL (80.0-100.0); Monocytes # (auto) 0.5 10 ^3/uL (0-1.3); Monocytes % (auto) 7.1 % (0.0-12.0); Neutrophils # (auto) 4.8 10 ^3/uL (1.6-8.6); Neutrophils % (auto) 64.3 % (37.0-80.0); Platelet Count (auto) 386 10^3/uL (140-450); Red Blood Cells 4.67 10^6/uL (4.5-5.90); Red Cell Distribution Width 13.6 % (11.8-14.3); White Blood Cell 7.5 10^3/uL (4.4-10.8)
[2024-09-11 08:47] LABS: Anion Gap 9 (5-15); Carbon Dioxide 28 mmol/L (20-31); Chloride 100 mmol/L (98-107); Potassium 4.1 mmol/L (3.5-5.1); Sodium 137 mmol/L (136-145)
[2024-09-11 08:48] LABS: Calcium 9.9 mg/dL (8.7-10.4)
[2024-09-11 08:53] LABS: BUN/Creatinine Ratio 18.3 (10.0-20.0); Blood Urea Nitrogen 13 mg/dL (9-23); Glucose 96 mg/dL (74-106)
[2024-09-11 09:00] VITALS: BP 118/76; PULSE 64; RESP 14; TEMP 98.1; O2SAT 98
[2024-09-11 12:52] VITALS: BP 110/81; PULSE 68; RESP 16; TEMP 97.9; O2SAT 95
[2024-09-11 16:50] VITALS: BP 127/68; PULSE 60; RESP 14; TEMP 97.4; O2SAT 99
[2024-09-11 16:51] VITALS: BP 125/81; PULSE 62; RESP 18; TEMP 97.3; O2SAT 99
--- NOTE | 2024-09-11 23:44 | DVHDSRES ---
Discharge Summary Date of Admission Resident Creating Document: ROMA SLAAS RESIDENT Sep 09, 2024 at 14:20 Date of Discharge: Sep 11, 2024 Admitting Diagnosis Vomiting with suspected blood in the vomit Wounds: No wounds Labs/Diagnostic Data: Laboratory Results Test 09/11/24 08:02 09/11/24 06:00 09/10/24 07:08 09/09/24 10:25 White Blood Count 7.5 10^3/uL (4.4-10.8) Red Blood Count 4.67 10^6/uL (4.5-5.90) Hemoglobin 15.1 g/dL (13.5-17.5) Hematocrit 42.7 % (41.0-53.0) Mean Corpuscular Volume 91.3 fL (80.0-100.0) Mean Corpuscular Hemoglobin 32.3 pg (28.0-32.0) Mean Corpuscular Hemoglobin Concent 35.4 g/dL (32.0-36.0) Red Cell Distribution Width 13.6 % (11.8-14.3) Platelet Count 386 10^3/uL (140-450) Mean Platelet Volume 7.8 fL (6.9-10.8) Neutrophils (%) (Auto) 64.3 % (37.0-80.0) Lymphocytes (%) (Auto) 25.7 % (10.0-50.0) Monocytes (%) (Auto) 7.1 % (0.0-12.0) Eosinophils (%) (Auto) 2.0 % (0.0-7.0) Basophils (%) (Auto) 0.9 % (0.0-2.0) Neutrophils # (Auto) 4.8 10 ^3/uL (1.6-8.6) Lymphocytes # (Auto) 1.9 10 ^3/uL (0.4-5.4) Monocytes # (Auto) 0.5 10 ^3/uL (0-1.3) Eosinophils # (Auto) 0.2 10 ^3/uL (0-0.8) Basophils # (Auto) 0.1 10 ^3/uL (0-0.2) Nucleated Red Blood Cells 0.0 % Sodium Level 137 mmol/L (136-145) Potassium Level 4.1 mmol/L (3.5-5.1) Chloride Level 100 mmol/L (98-107) Carbon Dioxide Level 28 mmol/L (20-31) Anion Gap 9 (5-15) Blood Urea Nitrogen 13 mg/dL (9-23) Creatinine 0.71 mg/dL (0.700-1.30) Glomerular Filtration Rate Calc 102 mL/min (>90) BUN/Creatinine Ratio 18.3 (10.0-20.0) Serum Glucose 96 mg/dL (74-106) Hemoglobin A1c 5.3 % A1C (<5.7) Calcium Level 9.9 mg/dL (8.7-10.4) Urine Opiates Screen Pos (NEGATIVE) Urine Fentanyl Screen Neg (NEGATIVE) Urine Barbiturates Screen Neg (NEGATIVE) Urine Phencyclidine Screen Neg (NEGATIVE) Urine Amphetamines Screen Neg (NEGATIVE) Urine Benzodiazepines Screen Neg (NEGATIVE) Urine Cocaine Screen Neg (NEGATIVE) Urine Cannabinoids Screen Pos (NEGATIVE) Total Bilirubin 0.6 mg/dL (0.2-1.0) Aspartate Amino Transferase (AST) 19 U/L (13-40) Alanine Aminotransferase (ALT) 22 U/L (7-40) Alkaline Phosphatase 104 U/L (46-116) Total Protein 6.3 g/dL (5.7-8.2) Albumin 4.0 g/dL (3.2-4.8) Lipase 31 U/L (12-53) Test 09/09/24 10:24 Urine Color Yellow (Yellow) Urine Clarity Clear (Clear) Urine pH 7.5 (5.0-9.0) Urine Specific [place] 1.026 (1.001-1.035) Urine Protein Negative (Negative) Urine Ketones 1+ (Negative) Urine Blood Negative /uL (Negative) Urine Nitrite Negative (Negative) Urine Bilirubin Negative (Negative) Urine Urobilinogen 2 mg/dL (Negative) Urine Leukocyte Esterase Negative /uL (Negative) Urine RBC <1 /hpf (0 - 3) Urine WBC 5 /hpf (0 - 3) Urine Squamous Epithelial Cells None seen /hpf (<5) Urine Bacteria None seen /hpf (None Seen) Urine Hyaline Casts Few /lpf (0 - 2) Urine Glucose Normal mg/dL (Normal) Other Laboratory Tests 09/11/24 08:02 Brief Hx & Hospital Course: HPI Patient is a 64-year-old male with a past medical history as described below came to the ED with a chief complaint of multiple episodes of vomiting. Patient reported that about a week ago he started having back pain , in the lower back, no radiation to the lungs, no flank pain, no pain on urination. One day prior to admission patient reported nausea with driving and 6 episodes of vomiting throwing up whitish yellow liquid, no blood in vomitus at home. Patient came to the hospital for further evaluation. In the ER patient reported throwing up 2 times with dark-colored blood. Patient denied history of cirrhosis, denied NSAID use, reported alcohol occasional use, denies smoking cigarettes but smokes 2 joints a day. Patient denied history of dark stools or hematochezia. CT abdomen pelvis with IV contrast was done which showed no acute intra- abdominal or intrapelvic process, scattered colonic diverticula without diverticulitis, small sliding hernia. Past medical History: Hypertension, hyperlipidemia, chronic back pain, PTSD Past surgical history: Right pelvis surgery, left femur surgery, left arm surgery Social history: Occasional alcohol, denies cigarette smoking, smokes 2 joints of weed a day. Denies any other drug use. Home Medication: Amlodipine 10 mg, enalapril 20 mg, bupropion 150 mg, fluoxetine 60 mg, rosuvastatin 10mg Hospital course With the patient was admitted to the hospital, in the ER he had 2 episodes of dark colored vomiting which was significant in amount. Patient was put NPO and started on IV fluids. In the ER patient was started on octreotide drip. patient was vitally stable and was shifted to the [facility] floor. Patient was denied any further nausea, vomiting, abdominal pain. Patient's hemoglobin and hematocrit remained stable. GI was consulted with Dr. Chavez who assessed the patient being clinically much better and the patient did not want any GI intervention at this point of time. As per GI recommendation patient's diet was advanced to clear liquid diet which she tolerated well without nausea and vomiting and was further advanced to full liquid diet which she tolerated well. Patient was discharged in stable condition to home advised to follow up in the discharge clinic and with the PCP. Review of systems Patient seen and examined at the bedside. Alert and oriented x 4. Vitals stable. Reports chronic lower back pain. Denied nausea, vomiting, abdominal pain, diarrhea, melena, hematochezia. Patient tolerated full liquid diet well Denied Chest, shortness of breath, palpitations. Physical Examination day of discharge Gen - no pallor, no icterus, no cyanosis, no clubbing, no LAD, no edema . Skin - Patients skin is warm and dry.. HEENT - normocephalic, atraumatic, moist mucous membranes. Neck - full ROM, no LAD, no JVD. Pulmonary - B/L vesicular breath sounds. no crackles , no wheezing, no stridor. cardiovascular - normal S1,S2 heard. no murmurs heard. peripheral pulses normal radial 2+, pedal 2+. capillary refill normal <2 secs. GI - soft abdomen without tenderness to palpation . no hepatosplenomegaly. Bowel sounds normoactive Neurological - Patient is A/O X 3 . Bilateral upper extremity strength 5/5, bilateral lower extremity strength 5/5, no facial droop, normal speech, no tremor, no sensory deficits. Discharge plan Patient was advised to follow up in the discharge clinic in 1 week and follow up with the PCP in 1-2 weeks. Continued on home medication. Advised to continue on full liquid diet for another 4-5 days and then advanced diet as tolerated. Goals of care discussed with the patient for 20 minutes; full code. Discussed with Dr. Madsen. Consults/Reason for consult GI consultation for acute GI bleed Operations or Procedures CT abdomen pelvis with IV contrast FINDINGS: Lower Chest: Mild centrilobular and paraseptal emphysematous changes noted. A 5 mm juxtapleural nodule seen in the lateral segment of right middle lobe. Mild left basilar subsegmental atelectasis noted. Hepatobiliary: Cholelithiasis with no evidence for cholecystitis. Spleen: Unremarkable. Pancreas: Unremarkable. Adrenal Glands: Unremarkable. tract: The kidneys are normal in size bilaterally without hydronephrosis or nephrolithiasis. The urinary bladder is unremarkable. GI tract: A small sliding hiatal hernia noted. No evidence of small bowel obstruction. Scattered colonic diverticula are noted without evidence of diverticulitis. The appendix is normal. Lymphatics: No mesenteric, retroperitoneal or periportal lymphadenopathy. Vasculature: The abdominal aorta is normal in caliber. Diffuse calcified plaque formation is noted. Pelvic Organs: Prostate is mildly enlarged. Bones/soft tissues: No acute osseous abnormality. Postoperative changes of right acetabulum and left proximal hip are noted chronic appearing moderate compression deformities of L2 and L4 with up to 50% loss of height centrally. Multilevel degenerative disc disease and posterior facet arthropathy of the lumbar spine noted. Other: None. IMPRESSION: 1. No CT evidence for acute intra-abdominal or intrapelvic process. 2. Scattered colonic diverticula without diverticulitis. 3. Mild fecal retention. 4. Small sliding hiatal hernia. 5. Cholelithiasis without evidence of cholecystitis. Condition at Discharge: Stable Final Diagnosis/Problems List # Acute intractable nausea and vomiting # Acute GI bleed ? gastritis ? peptic ulcer # H/o Hypertension # H/o Depression and PTSD # Chronic Back Pain # Hyperlipidemia Discharge Disposition: Home Discharge Instruct/Medications Diet: See Comment Diet comment: Continue on a full liquid diet for 4-5 days and then advance as tolerated. Activity: No Restrictions, As Tolerated Follow Up/Referral: Follow up with the PCP in one week Follow up in the discharge clinic in one week Medications: as per EMR Discharge Statement: "Patient was advised to return to the ER or call 911 if any headaches, dizziness, shortness of breath, chest pain, abdominal pain, bleeding, fevers, or worsening of medical condition. Patient was counseled about treatment plan, medications, possible side effects, patientverbalized understanding. All questions were answered to the best of my ability. This discharge took greater then 30 minutes in planning, reviewing documentation, counseling the patient, and discussing with other team members." ASSESSMENT ASSESSMENT Assessment # Acute intractable nausea and vomiting # Acute GI bleed ? gastritis ? peptic ulcer # H/o Hypertension # H/o Depression and PTSD # Chronic Back Pain # Hyperlipidemia Addendum Addendum Addendum I was physically present for the knott portions of the service provided to patient by THE RESIDENT. I have reviewed the documentation, discussed the case with resident and agree with the resident's documentation except as noted. Also the patient's clinical case was discussed with the patient's nurse. This medical document was created using an electronic medical record system with computerized dictation system. Although this document has been carefully reviewed, there might still be some phonetic and typographical errors. These areas are purely typographical due to imperfections of the software programs, and do not reflect any compromise in the patient's medical care. Late signature. Date of Service: Sep 11, 2024 Billing Provider: ALMA MADSEN MD Common Visit Codes: 31189-ZUR/[id number] DISCH DAY >30min Secondary Visit Codes: [id number] CARE PLAN 30 MINUTES (20 minutes) ROMA SALAS RESIDENT Sep 11, 2024 23:44 ALMA MADSEN MD Sep 13, 2024 06:04
[2024-09-13 09:21] LABS: Hepatitis B Surface Antigen Negative (Negative)
[2024-09-13 11:30] LABS: Hepatitis C Antibody Positive (Negative)
== END 2024-09-11 18:32 | disposition home or self-care (01) | DRG 241 ==
LOC: ER 09:00 → EDBD 09:00 → OVERFLOW 14:20 → WEST WING 19:29
PROVIDERS: ADMIT Student in an Organized Health Care Education/Training Program; ATTEND Student in an Organized Health Care Education/Training Program
DX: K29.71 Gastritis, unspecified, with bleeding (principal); E78.5 Hyperlipidemia, unspecified; I10 Essential (primary) hypertension; K27.0 Acute peptic ulcer, site unspecified, with hemorrhage; K80.20 Calculus of gallbladder without cholecystitis without obstruction; G89.29 Other chronic pain; F43.10 Post-traumatic stress disorder, unspecified; Z79.899 Other long term (current) drug therapy
CPT/HCPCS: 36415; 74177; 80048; 80053; 80307; 81001; 83036; 83690; 85014; 85018; 85025; 86803; 87340; 99291; G0378; J1885; J2470